=== PATIENT | female | born 1980 | race Caucasian/White ===

== ENCOUNTER → 2017-10-02 10:28 | Outpatient (CLI) | payer OTHER ==
[~2017-10-02 10:28] MED LIST: HYDROCODONE-APA1 TAB PO; IBUPROFEN600 MG PO; PRENATAL COMPLE1 TAB PO
[2017-10-02 13:40] VITALS: BMI 26.4
[2017-12-05 14:17] VITALS: BMI 27.5
== END ==
LOC: D.FANS 10:28
DX: O24.419 Gestational diabetes mellitus in pregnancy, unspecified control (principal); Z3A.00 Weeks of gestation of pregnancy not specified

== ENCOUNTER → 2017-10-16 16:12 | Outpatient (CLI) | payer OTHER ==
[2017-10-02 13:40] VITALS: BMI 26.4
[2017-12-05 14:17] VITALS: BMI 27.5
== END | disposition home or self-care (01) ==
LOC: D.LDO 16:12
DX: O24.419 Gestational diabetes mellitus in pregnancy, unspecified control (principal); Z3A.32 32 weeks gestation of pregnancy

== ENCOUNTER → 2017-10-23 14:38 | Outpatient (CLI) | payer OTHER ==
[2017-10-02 13:40] VITALS: BMI 26.4
[2017-12-05 14:17] VITALS: BMI 27.5
== END | disposition home or self-care (01) ==
LOC: D.LDO 14:38
DX: O24.419 Gestational diabetes mellitus in pregnancy, unspecified control (principal); Z3A.33 33 weeks gestation of pregnancy

== ENCOUNTER → 2017-10-29 14:07 | Outpatient (CLI) | payer OTHER ==
[2017-10-02 13:40] VITALS: BMI 26.4
[2017-12-05 14:17] VITALS: BMI 27.5
== END | disposition home or self-care (01) ==
LOC: D.LDO 14:07
DX: O24.419 Gestational diabetes mellitus in pregnancy, unspecified control (principal); Z3A.34 34 weeks gestation of pregnancy

== ENCOUNTER → 2017-11-05 14:14 | Outpatient (CLI) | payer OTHER ==
[2017-10-02 13:40] VITALS: BMI 26.4
[2017-12-05 14:17] VITALS: BMI 27.5
== END | disposition home or self-care (01) ==
LOC: D.LDO 14:14
DX: O24.419 Gestational diabetes mellitus in pregnancy, unspecified control (principal); Z3A.35 35 weeks gestation of pregnancy

== ENCOUNTER → 2017-11-12 15:20 | Outpatient (CLI) | payer OTHER ==
[2017-10-02 13:40] VITALS: BMI 26.4
[2017-12-05 14:17] VITALS: BMI 27.5
== END | disposition home or self-care (01) ==
LOC: D.LDO 15:20
DX: O24.913 Unspecified diabetes mellitus in pregnancy, third trimester (principal); Z3A.36 36 weeks gestation of pregnancy

== ENCOUNTER → 2017-11-20 13:58 | Outpatient (CLI) | payer OTHER ==
[2017-10-02 13:40] VITALS: BMI 26.4
[2017-12-05 14:17] VITALS: BMI 27.5
== END | disposition home or self-care (01) ==
LOC: D.LDO 13:58
DX: O24.419 Gestational diabetes mellitus in pregnancy, unspecified control (principal); Z3A.37 37 weeks gestation of pregnancy

== ENCOUNTER → 2017-11-27 09:53 | Outpatient (CLI) | payer OTHER ==
[2017-10-02 13:40] VITALS: BMI 26.4
[2017-12-05 14:17] VITALS: BMI 27.5
== END | disposition home or self-care (01) ==
LOC: D.LDO 09:53
DX: O24.419 Gestational diabetes mellitus in pregnancy, unspecified control (principal); Z3A.38 38 weeks gestation of pregnancy

== ENCOUNTER → 2017-11-30 15:34 | Outpatient (CLI) | payer OTHER ==
[2017-10-02 13:40] VITALS: BMI 26.4
[2017-12-05 14:17] VITALS: BMI 27.5
== END | disposition home or self-care (01) ==
LOC: D.LDO 15:34
DX: O24.419 Gestational diabetes mellitus in pregnancy, unspecified control (principal); Z3A.39 39 weeks gestation of pregnancy

== ENCOUNTER → 2017-12-03 10:47 | Outpatient (CLI) | payer OTHER ==
[2017-10-02 13:40] VITALS: BMI 26.4
[2017-12-05 14:17] VITALS: BMI 27.5
== END | disposition home or self-care (01) ==
LOC: D.LDO 10:47
DX: O24.913 Unspecified diabetes mellitus in pregnancy, third trimester (principal); Z3A.39 39 weeks gestation of pregnancy

== ENCOUNTER 2017-12-05 05:18 | Inpatient (IN) | payer OTHER ==
[~2017-12-05] VITALS: Ht 170.2 cm; Wt 79.8 kg
--- NOTE | ~2017-12-05 | DS ---
PATIENT:CONSTANCE LOVETT :76 MEDICAL RECORD: [id number] DISCHARGE SUMMARY ADMISSION DATE: 12/05/17 DISCHARGE DATE: 12/08/17 HOSPITAL COURSE: The patient was admitted on 12/05/2017. A 36-year-old at 39 weeks and 6 days, admitted for induction of labor per patient wishes. The patient was noted to be B negative, group B strep negative, and rubella nonimmune. PAST MEDICAL HISTORY: The patient with past medical history significant for; 1. AMA, maternal age. 2. A1 gestational diabetes. 3. Rh negative. 4. Rubella nonimmune. PAST SURGICAL HISTORY: The patient reported no significant surgical history. MEDICATIONS: Included vitamins. FAMILY HISTORY: The patient reported no significant family history. SOCIAL HISTORY: The patient reported social history negative times 3. PHYSICAL EXAMINATION: VITAL SIGNS: On initial evaluation, the patient's vital signs are stable. The patient was noted to be normotensive and afebrile. LUNGS: Clear to auscultation. CARDIOVASCULAR: Regular rate and rhythm. PELVIC: Uterus was appropriately sized and nontender. EXTREMITIES: Lower extremities were free of Homans sign. evaluation revealed a category 1 tracing with heart tones in the 135 with moderate variability. ASSESSMENT AND PLAN: At that time, term intrauterine at 39 weeks and 6 days, induction of labor per patient wishes, group B strep negative, AMA, Rh negative, rubella nonimmune, Pitocin induction of labor was begun. wellbeing was reassuring, category 1 tracing. Risks and benefits were explained to the patient including increased risk of . The patient voiced understanding and consent. The patient had been placed on Pitocin on the . The patient had 1 episode of late decelerations resolved after station of Pitocin, Pitocin was restarted, the patient with a category 1 tracing and 12 hours into the induction, the patient desired to stop due to lack of progress. Risks and benefits of were explained, category 1 tracing, the patient was allowed to eat, n.p.o. at midnight with plans for a the next morning. Primary low transverse section was performed, note is as on the chart. The patient did well overnight on postop day #0, tolerating clear liquids, and IV fluids. The patient with a Santoyo catheter in place, lower extremities were free of Homans sign and SCDs were on and functioning appropriately. The patient also had an overnight Dilaudid CLINICAL CYTOPATHOLOGIST and IV Toradol. On the morning of postop day #1, status post low transverse section, the patient continued to do well. Vital signs were stable and the patient was afebrile. Hemoglobin was stable. Incision was clean, dry, and intact. Uterus was infraumbilical and nontender. The patient was advanced to general diet and p.o. pain meds at that time, the Santoyo was discontinued, and ambulation was begun. The patient continued to do well overnight on postop day #1. On the DISCHARGE SUMMARY REPORT [id number] CONTSANCE LOVETT morning of postop day #2, the patient was afebrile with stable vital signs. Incision was clean, dry, and intact. Uterus was infraumbilical and appropriately tender with minimal lochia. The patient was discharged home on postop day #2 with instructions to follow up on 12/11 for staple removal. TRANSINT:[id number] Voice Confirmation ID: [id number] DOCUMENT ID: [id number] ROSSI GIBBS MD CC: [id number] DICTATION DATE: 01/05/18614 DAYCARE WORKER: 01/05/18 1005 [facility] [place] 12/08/17 [id number] [place] [address]
[2017-12-05] MEDS ORDERED: PRENATAL COMPLE1 TAB PO (05:32)
[2017-12-05 05:33] VITALS: BP 120/72
[2017-12-05 07:21] LABS: HEMATOCRIT 37.5 % (36.0-48.0); HEMOGLOBIN 13.3 g/dL (12-16); MCH 33.6 pg (26.0-34.0); MCHC 35.5 g/dL (31.0-37.0); MCV 94.7 fL (80.0-100.0); RBC 3.96 10x6/uL (4.00-5.40); RDW 13.7 % (11.5-14.5); WBC 10.8 10x3/uL (4.8-10.8)
[2017-12-05 08:27] LABS: APPEARANCE CLEAR (CLEAR); BILIRUBIN NEGATIVE (NEGATIVE); COLOR YELLOW (YELLOW); GLUCOSE NEGATIVE (NEGATIVE); KETONE NEGATIVE (NEGATIVE); NITRITE NEGATIVE (NEGATIVE); PROTEIN NEGATIVE (NEGATIVE); UROBILINOGEN NORMAL (NORMAL)
[2017-12-05 14:17] VITALS: Ht 170.2 cm; Wt 79.8 kg
[2017-12-06] VITALS (14 sets, daily range): BP systolic 106–133; BP diastolic 55–81
[2017-12-06 07:27] LABS: RAPID PLASMA REAGIN Non Reactive (Non Reactive)
[2017-12-06 13:48] LABS: BASOPHILS 0.1 % (0-2); EOSINOPHILS 0.2 % (0-7); HEMATOCRIT 35.8 % (36.0-48.0); HEMOGLOBIN 12.8 g/dL (12-16); IMMATURE GRANULOCYTES 0.3 % (0-5); LYMPHOCYTES 11.8 % (15-50); MCH 33.6 pg (26.0-34.0); MCHC 35.8 g/dL (31.0-37.0); MONOCYTES 8.7 % (2-11); NEUTROPHILS 78.9 % (40-80); RBC 3.81 10x6/uL (4.00-5.40); RDW 13.4 % (11.5-14.5)
[2017-12-06 13:58] LABS: PLATELET COUNT 192 10x3/uL (130-400); WBC 15.1 10x3/uL (4.8-10.8)
[2017-12-07 06:03] LABS: BASOPHILS 0.1 % (0-2); EOSINOPHILS 0.4 % (0-7); HEMATOCRIT 34.7 % (36.0-48.0); IMMATURE GRANULOCYTES 0.2 % (0-5); LYMPHOCYTES 19.9 % (15-50); MCHC 34.6 g/dL (31.0-37.0); MCV 95.3 fL (80.0-100.0); MEAN PLATELET VOLUME 11.6 fL (7.4-10.4); MONOCYTES 8.3 % (2-11); NEUTROPHILS 71.1 % (40-80); PLATELET COUNT 186 10x3/uL (130-400); RBC 3.64 10x6/uL (4.00-5.40); RDW 13.5 % (11.5-14.5); WBC 12.4 10x3/uL (4.8-10.8)
[2017-12-07 08:39] VITALS: BP 106/62
[2017-12-07 10:06] VITALS: BP 120/64
[2017-12-07 19:18] VITALS: BP 108/61
[2017-12-07 22:55] VITALS: BP 115/67
[2017-12-08 02:17] VITALS: BP 123/74
[2017-12-08 07:10] VITALS: BP 119/60
[2017-12-08] MEDS ORDERED: HYDROCODONE-APA1 TAB PO (07:43)
[2017-12-08] MEDS ORDERED: IBUPROFEN600 MG PO (07:43)
== END 2017-12-08 11:36 | disposition home or self-care (01) | DRG 766 ==
LOC: D.LD 05:18
PROVIDERS: Obstetrics & Gynecology
PROC: 10D00Z1 Extraction of Products of Conception, Low, Open Approach (ICD-10-PCS; principal; 2017-12-06 07:00)
DX: O24.429 Gestational diabetes mellitus in childbirth, unspecified control (principal); Z3A.39 39 weeks gestation of pregnancy; Z37.0 Single live birth; O62.1 Secondary uterine inertia; O26.893 Other specified pregnancy related conditions, third trimester; Z67.91 Unspecified blood type, Rh negative

== ENCOUNTER 2018-01-14 05:30 | Day surgery (SDC) | payer OTHER ==
[2018-01-11 09:24] LABS: BASOPHILS 0.2 % (0-2); EOSINOPHILS 0.7 % (0-7); HEMATOCRIT 39.2 % (36.0-48.0); IMMATURE GRANULOCYTES 0.1 % (0-5); LYMPHOCYTES 31.2 % (15-50); MCHC 35.7 g/dL (31.0-37.0); MCV 92.5 fL (80.0-100.0); MEAN PLATELET VOLUME 11.6 fL (7.4-10.4); NEUTROPHILS 61.8 % (40-80); PLATELET COUNT 220 10x3/uL (130-400); RBC 4.24 10x6/uL (4.00-5.40); RDW 12.3 % (11.5-14.5); WBC 8.1 10x3/uL (4.8-10.8)
[2018-01-11 10:37] LABS: HCG URINE NEGATIVE (NEGATIVE)
--- NOTE | ~2018-01-14 | OP ---
PATIENT NAME: CONSTANCE LOVETT MEDICAL RECORD: [id number] :76 [facility] DATE: SURGEON: DAKOTA PERDOMO MD DATE OF OPERATION: 01/14/2018 PREOPERATIVE DIAGNOSIS: High-grade cervical dysplasia. POSTOPERATIVE DIAGNOSIS: High-grade cervical dysplasia. PROCEDURE: Loop electrosurgical excision procedure. SURGEON: Dakota Perdomo MD ESTIMATED BLOOD LOSS: Minimal. ANESTHESIA: General endotracheal. INTRAVENOUS FLUIDS: Per anesthesia record. FINDINGS: Grossly normal-appearing external genitalia and cervix. SPECIMENS: Cervical cone biopsy. ESTIMATED BLOOD LOSS: Minimal. COMPLICATIONS: None apparent. PROCEDURE IN DETAIL: The patient was taken to the operating room where general anesthesia was achieved without difficulty. The patient was then prepped and draped in normal sterile fashion in the dorsal lithotomy position in the [facility]. Following prep and drape, the bladder was drained of approximately 10 cc of clear yellow urine. An insulated Graves speculum was then placed into the vagina and the cervix was identified. At that point, a 1 x 1 cm loop electrode was used to remove a portion of the cervical transition zone to a level of approximately 8 to 9 mm. The cervical crater and several areas of bleeding, which were then cauterized using the ball tip with eventual good hemostasis. Monsel solution was placed on the cervical crater and following removal of the speculum, the cervix was found to be hemostatic. The patient tolerated the procedure well, was transported to postanesthesia recovery stable without incident. TRANSINT:[id number] Voice Confirmation ID: [id number] DOCUMENT ID: [id number] DAKOTA PERDOMO MD at 1541 CC: [id number] DICTATION DATE: 01/27/18 1555 [employer] SUPERVISOR: 01/27/18 2220 [facility] 01/14/18 [place] [id number]
[2018-01-14 06:18] VITALS: BP 98/59; BMI 24.2
[2018-01-14] MEDS ORDERED: BIRTH CONTROL PILL (06:18)
[2018-01-14 06:26] LABS: HCG URINE NEGATIVE (NEGATIVE)
[2018-01-14 06:32] VITALS: BMI 24.2
== END 2018-01-14 10:10 | disposition home or self-care (01) ==
LOC: D.OPS 05:30 → D.PAN 07:30 → D.OPS 07:30
PROVIDERS: Obstetrics & Gynecology
DX: R87.613 High grade squamous intraepithelial lesion on cytologic smear of cervix (HGSIL) (principal); Z01.812 Encounter for preprocedural laboratory examination

== ENCOUNTER 2020-07-07 16:51 | Emergency (ER) | payer MEDICAID ==
[~2020-07-07] VITALS: Ht 167.6 cm; Wt 72.3 kg
[~2020-07-07 16:51] MED LIST changes: +BIRTH CONTROL PILL
[2020-07-07 17:05] VITALS: Ht 167.6 cm; Wt 72.3 kg
[2020-07-07] MEDS ORDERED: IMITREX50 MG PO (17:15)
[2020-07-07 17:48] LABS: BILIRUBIN NEGATIVE (NEGATIVE); GLUCOSE NEGATIVE (NEGATIVE); KETONE NEGATIVE (NEGATIVE); NITRITE NEGATIVE (NEGATIVE); UROBILINOGEN NORMAL (NORMAL)
[2020-07-07 18:22] LABS: BASOPHILS 0.4 % (0-2); EOSINOPHILS 0.9 % (0-7); HEMATOCRIT 40.7 % (36.0-48.0); HEMOGLOBIN 14.2 g/dL (12-16); IMMATURE GRANULOCYTES 0.1 % (0-5); LYMPHOCYTES 29.5 % (15-50); MCH 32.4 pg (26.0-34.0); MCHC 34.9 g/dL (31.0-37.0); MCV 92.9 fL (80.0-100.0); MEAN PLATELET VOLUME 11.5 fL (7.4-10.4); MONOCYTES 6.4 % (2-11); NEUTROPHILS 62.7 % (40-80); PLATELET COUNT 241 10x3/uL (130-400); RBC 4.38 10x6/uL (4.00-5.40); RDW 13.2 % (11.5-14.5); WBC 8.1 10x3/uL (4.8-10.8)
[2020-07-07 18:34] LABS: CALC OSMOLALITY 281 mosm/kg (275-300); CALCIUM 8.8 mg/dL (8.5-10.1); CARBON DIOXIDE 29.7 mmol/L (21.0-32.0); CHLORIDE - SERUM 107 mmol/L (98-107); CREATININE - SERUM 0.8 mg/dL (0.6-1.3); GLUCOSE 77 mg/dL (74-106); POTASSIUM - SERUM 4.1 mmol/L (3.5-5.1); SODIUM 143 mmol/L (136-145); UREA NITROGEN 7 mg/dL (7-18); eGFR NON AFRICAN AMERICAN 84 mL/min (90-120)
[2020-07-07 18:39] LABS: ALBUMIN 3.7 g/dL (3.4-5.0); ALKALINE PHOSPHATASE 80 U/L (30-120); ALT (SGPT) 23 U/L (10-68); BILIRUBIN - TOTAL 0.22 mg/dL (0.2-1.3); PROTEIN - SERUM 7.5 g/dL (6.4-8.2)
[2020-07-07] MEDS ORDERED: REGLAN10 MG PO (19:11)
[2020-07-07 19:52] VITALS: BP 112/75
== END 2020-07-07 19:35 | disposition home or self-care (01) ==
LOC: D.ER 16:51
PROVIDERS: Family Medicine
DX: R51 Headache (principal)